=== PATIENT | female | born 2000 | race Caucasian/White ===

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

== ENCOUNTER → 2019-06-06 | Outpatient (CLI) | payer OTHER | END | disposition home or self-care (01) | LOC: MRI 09:00 | DX: G44.219 Episodic tension-type headache, not intractable (principal); G43.009 Migraine without aura, not intractable, without status migrainosus ==

== ENCOUNTER → 2020-07-28 | Outpatient (CLI) | payer OTHER ==
[2020-07-28 11:53] LABS: BASO % 0.2 % (0.0-1.0); EOS # 0.1 10*3/uL (0.0-0.4); EOS % 1.1 % (1.0-4.0); LYMPH % 21.9 % (27.0-41.0); MEAN CELL VOLUME 82.1 fl (81.0-99.0); MEAN CORPUSCULAR HGB 24.6 pg (27.0-31.0); MEAN PLATELET VOLUME 10.5 fl (9.6-12.3); MONO # 0.5 10*3/uL (0.1-1.0); MONO % 5.4 % (3.0-9.0); NEUT # 6.6 10*3/uL (2.3-7.9); NEUT % 70.9 % (47.0-73.0); PLATELET COUNT AUTOMATED 289 10*3/uL (130-400); RED BLOOD COUNT 4.63 10*6/uL (4.10-5.10); RED CELL DISTRI WIDTH 14.6 % (0-14.5); WHITE BLOOD COUNT 9.3 10*3/uL (4.8-10.8)
[2020-07-28 12:23] LABS: ALBUMIN 3.3 gm/dl (3.1-4.5); BUN 11 mg/dl (7-24); CHLORIDE 107 mmol/L (98-107); CREATININE 0.69 mg/dL (0.55-1.02); SGOT/AST 12 IU/L (3-35); SGPT/ALT 21 U/L (12-78); SODIUM 140 mmol/L (136-145); TOTAL PROTEIN 7.4 gm/dL (6.4-8.2)
[2020-07-28 12:31] LABS: ALKALINE PHOSPHATASE 66 U/L (45-117)
[2020-07-29 05:06] LABS: FOLLICLE STIMULATING HORMONE 3.6 mIU/mL (.)
[2020-07-30 02:09] LABS: TESTOSTERONE FREE, (DIRECT) 1.1 pg/mL (0.0-4.2)
== END | disposition home or self-care (01) ==
LOC: LAB 11:13
PROVIDERS: ATTEND Nurse Practitioner Women's Health
DX: E03.9 Hypothyroidism, unspecified (principal); N91.2 Amenorrhea, unspecified

== ENCOUNTER → 2020-08-05 | Outpatient (CLI) | payer OTHER | END | disposition home or self-care (01) | LOC: US 00:36 | PROVIDERS: ATTEND Nurse Practitioner Women's Health | DX: N83.201 Unspecified ovarian cyst, right side (principal); N85.8 Other specified noninflammatory disorders of uterus ==

== ENCOUNTER 2020-12-08 15:21 | Emergency (ER) | payer OTHER ==
[2020-12-08] MEDS ORDERED: CYCLOBENZAPRINE10 MG PO (16:20)
[2020-12-08] MEDS ORDERED: NAPROXEN250 MG PO (16:20)
[2020-12-08] MEDS ORDERED: TYLENOL325 M1 PO (16:20)
== END 2020-12-08 16:27 | disposition home or self-care (01) ==
LOC: ED 15:21
DX: R51.9 Headache, unspecified (principal); M79.10 Myalgia, unspecified site; Z79.899 Other long term (current) drug therapy

== ENCOUNTER → 2021-05-10 | Outpatient (CLI) | payer OTHER ==
[~2021-05-10] MED LIST changes: +CYCLOBENZAPRINE10 MG PO; +NAPROXEN250 MG PO; +TYLENOL325 M1 PO
[2021-05-10 13:08] LABS: BASO % 0.4 % (0.0-1.0); EOS # 0.1 10*3/uL (0.0-0.4); EOS % 1.2 % (1.0-4.0); LYMPH # 2.4 10*3/uL (1.3-4.4); LYMPH % 23.2 % (27.0-41.0); MEAN CORPUSCULAR HGB 24.9 pg (27.0-31.0); MEAN CORPUSCULAR HGB CONC 30.8 g/dl (33.0-37.0); MEAN PLATELET VOLUME 10.6 fl (9.6-12.3); MONO # 0.6 10*3/uL (0.1-1.0); MONO % 5.9 % (3.0-9.0); NEUT # 7.1 10*3/uL (2.3-7.9); NEUT % 68.9 % (47.0-73.0); PLATELET COUNT AUTOMATED 289 10*3/uL (130-400); RED BLOOD COUNT 4.69 10*6/uL (4.10-5.10); RED CELL DISTRI WIDTH 13.8 % (0-14.5); WHITE BLOOD COUNT 10.3 10*3/uL (4.8-10.8)
== END | disposition home or self-care (01) ==
LOC: LAB 12:38
PROVIDERS: ATTEND Chiropractor Orthopedic
DX: G44.209 Tension-type headache, unspecified, not intractable (principal); M99.02 Segmental and somatic dysfunction of thoracic region; Z79.899 Other long term (current) drug therapy

== ENCOUNTER → 2022-02-14 | Outpatient (CLI) | payer OTHER | END | disposition home or self-care (01) | LOC: US 15:09 | PROVIDERS: ATTEND Podiatrist | DX: R60.9 Edema, unspecified (principal); M79.604 Pain in right leg ==

== ENCOUNTER 2022-07-03 11:45 | Emergency (ER) | payer OTHER ==
[~2022-07-03] VITALS: Ht 162.5 cm; Wt 106.6 kg
== END 2022-07-03 14:06 | disposition home or self-care (01) ==
LOC: ED 11:45
DX: S93.492A Sprain of other ligament of left ankle, initial encounter (principal); Z88.0 Allergy status to penicillin; Z79.899 Other long term (current) drug therapy; X50.9XXA Other and unspecified overexertion or strenuous movements or postures, initial encounter; Y93.89 Activity, other specified; Y92.89 Other specified places as the place of occurrence of the external cause; Y99.8 Other external cause status

== ENCOUNTER 2023-05-18 23:39 | Emergency (ER) | payer MEDICAID ==
[~2023-05-18] VITALS: Ht 162.5 cm; Wt 114.3 kg
[2023-05-18] MEDS ORDERED: LEVOTHYROXINE112 MC1 PO (23:56)
[2023-05-18] MEDS ORDERED: METFORMIN HYDR500 MG PO (23:57)
[2023-05-18] MEDS ORDERED: FAMOTIDINE20 M1 PO (23:57)
[2023-05-19 00:15] LABS: BASO # 0.1 10*3/uL (0.0-0.1); BASO % 0.5 % (0.0-1.0); EOS # 0.2 10*3/uL (0.0-0.4); EOS % 1.4 % (1.0-4.0); HEMATOCRIT 34.2 % (37.0-47.0); LYMPH # 3.4 10*3/uL (1.3-4.4); LYMPH % 31.9 % (27.0-41.0); MEAN CORPUSCULAR HGB 25.2 pg (27.0-31.0); MEAN CORPUSCULAR HGB CONC 30.7 g/dl (33.0-37.0); MEAN PLATELET VOLUME 10.8 fl (9.6-12.3); MONO # 0.7 10*3/uL (0.1-1.0); MONO % 6.8 % (3.0-9.0); NEUT # 6.4 10*3/uL (2.3-7.9); NEUT % 59.2 % (47.0-73.0); PLATELET COUNT AUTOMATED 266 10*3/uL (130-400); RED BLOOD COUNT 4.17 10*6/uL (4.10-5.10); RED CELL DISTRI WIDTH 14.1 % (0-14.5); WHITE BLOOD COUNT 10.8 10*3/uL (4.8-10.8)
[2023-05-19 00:36] LABS: BILIRUBIN Negative (Negative); BLOOD Negative (Negative); CLARITY Clear (Clear); COLOR Yellow (Yellow); GLUCOSE Negative (Negative); KETONE Trace (Negative); LEUKO ESTERASE Trace (Negative); NITRITE Negative (Negative)
[2023-05-19 00:48] LABS: ALKALINE PHOSPHATASE 59 U/L (46-116); BUN 10 mg/dl (9-23); CHLORIDE 109 mmol/L (98-107); SGPT/ALT 11 U/L (10-49); TOTAL PROTEIN 7.1 gm/dL (6.0-8.0)
[2023-05-19 00:50] LABS: BACTERIA 1+; RBC 0-2 rbc/hpf (0-2)
== END 2023-05-19 01:47 | disposition home or self-care (01) ==
LOC: ED 23:39
PROVIDERS: Internal Medicine
DX: K92.2 Gastrointestinal hemorrhage, unspecified (principal); D64.9 Anemia, unspecified; G43.909 Migraine, unspecified, not intractable, without status migrainosus; Z88.0 Allergy status to penicillin

== ENCOUNTER 2023-10-05 20:40 | Emergency (ER) | payer MEDICAID ==
[~2023-10-05] VITALS: Ht 162.5 cm; Wt 116.1 kg
[~2023-10-05 20:40] MED LIST changes: +FAMOTIDINE20 M1 PO; +LEVOTHYROXINE112 MC1 PO; +METFORMIN HYDR500 MG PO
[2023-10-05] MEDS ORDERED: SLOW RELEASE I142 M2 PO (20:56)
[2023-10-05 21:22] LABS: BASO % 0.3 % (0.0-1.0); EOS # 0.2 10*3/uL (0.0-0.4); EOS % 1.9 % (1.0-4.0); HEMATOCRIT 36.8 % (37.0-47.0); LYMPH # 2.6 10*3/uL (1.3-4.4); LYMPH % 22.1 % (27.0-41.0); MEAN CELL VOLUME 80.5 fl (81.0-99.0); MEAN CORPUSCULAR HGB 24.5 pg (27.0-31.0); MEAN CORPUSCULAR HGB CONC 30.4 g/dl (33.0-37.0); MEAN PLATELET VOLUME 9.6 fl (9.6-12.3); MONO # 0.7 10*3/uL (0.1-1.0); MONO % 6.1 % (3.0-9.0); NEUT % 69.3 % (47.0-73.0); PLATELET COUNT AUTOMATED 269 10*3/uL (130-400); RED BLOOD COUNT 4.57 10*6/uL (4.10-5.10); RED CELL DISTRI WIDTH 14.8 % (0-14.5); WHITE BLOOD COUNT 11.6 10*3/uL (4.8-10.8)
[2023-10-05 21:44] LABS: ALKALINE PHOSPHATASE 60 U/L (46-116); BUN 8 mg/dl (9-23); CHLORIDE 107 mmol/L (98-107); POTASSIUM 3.6 mmol/L (3.4-5.1); SGPT/ALT 13 U/L (5-49); TOTAL PROTEIN 6.9 gm/dL (6.0-8.0)
== END 2023-10-05 22:49 | disposition home or self-care (01) ==
LOC: ED 20:40
PROVIDERS: Nurse Practitioner
DX: D64.9 Anemia, unspecified (principal); R42 Dizziness and giddiness; N93.8 Other specified abnormal uterine and vaginal bleeding; R51.9 Headache, unspecified; Z88.0 Allergy status to penicillin; Z79.899 Other long term (current) drug therapy

== ENCOUNTER → 2024-05-30 | Outpatient (CLI) | payer MEDICAID ==
[~2024-05-30] MED LIST changes: +SLOW RELEASE I142 M2 PO
[2024-05-30 17:55] LABS: BASO # 0.1 10*3/uL (0.0-0.1); BASO % 0.4 % (0.0-1.0); EOS # 0.1 10*3/uL (0.0-0.4); EOS % 1.2 % (1.0-4.0); HEMATOCRIT 34.7 % (37.0-47.0); LYMPH % 24.9 % (27.0-41.0); MEAN CELL VOLUME 77.3 fl (81.0-99.0); MEAN CORPUSCULAR HGB 24.5 pg (27.0-31.0); MEAN CORPUSCULAR HGB CONC 31.7 g/dl (33.0-37.0); MEAN PLATELET VOLUME 10.1 fl (9.6-12.3); MONO # 0.7 10*3/uL (0.1-1.0); MONO % 6.2 % (3.0-9.0); PLATELET COUNT AUTOMATED 293 10*3/uL (130-400); RED BLOOD COUNT 4.49 10*6/uL (4.10-5.10); RED CELL DISTRI WIDTH 14.5 % (0-14.5); WHITE BLOOD COUNT 11.9 10*3/uL (4.8-10.8)
[2024-05-30 18:15] LABS: ALKALINE PHOSPHATASE 64 U/L (46-116); BUN 8 mg/dl (9-23); CHLORIDE 109 mmol/L (98-107); POTASSIUM 3.5 mmol/L (3.4-5.1); SGPT/ALT 10 U/L (5-49); TOTAL PROTEIN 6.9 gm/dL (6.0-8.0)
[2024-05-30 18:18] LABS: VITAMIN D, 25-HYDROXY 21.8 ng/mL (30-100)
[2024-05-31 08:10] LABS: THYROID PEROXIDASE (TPO) AB 255 IU/mL (0-34)
== END | disposition home or self-care (01) ==
LOC: LAB 17:31
PROVIDERS: ATTEND Nurse Practitioner Family
DX: R60.0 Localized edema (principal); D50.9 Iron deficiency anemia, unspecified; E03.9 Hypothyroidism, unspecified; E28.2 Polycystic ovarian syndrome; E53.8 Deficiency of other specified B group vitamins; E55.9 Vitamin D deficiency, unspecified; E66.9 Obesity, unspecified; E88.819 Insulin resistance, unspecified; Z68.41 Body mass index [BMI] 40.0-44.9, adult; Z79.899 Other long term (current) drug therapy